=== PATIENT | female | born 1990 | race American Indian/Alaskan Native ===

== ENCOUNTER 2017-09-03 11:32 | Emergency (ER) | payer MEDICAID ==
[2017-09-03 12:57] LABS: Bilirubin,Urine NEG (Negative); Blood,Urine NEG (Negative); Color,Urine Yellow (Yellow); Mucus,Urine 1+ /HPF; Nitrite,Urine NEG (Negative); Protein,Urine <15 mg/dL mg/dL (Negative)
--- NOTE | 2017-09-03 13:30 | Emergency Department Report ---
ED Back Pain/Injury HPI - General Chief Complaint: Back Pain/Injury Stated Complaint: BACK PAIN Time Seen by Provider: 09/03/17 12:58 Source: patient Limitations: No Limitations - History of Present Illness Initial Comments: This is a 27 y.o. female presents with mid back pain for 2 weeks. She works for [employer] but don't recall lifting anything that would cause back pain. Omega twisting , bending, falling, or lifting something the wrong way. Reports back pain feels like fluid in mid back. Denies radiating beyond buttock. States she had a fever of 103.0 two days ago. She is having cough, SOB, light sensitivity for 2 days. She took ibuprofen for 2 days with minimal relief. MD Complaint: back pain -: days(s) (2 days for URI symptoms), week(s) (2 weeks for mid back pain) Similar Symptoms Previously: No Place: home Radiation: none Severity: moderate Severity scale (0 -10): 6 Quality: sharp, aching Consistency: intermittent Improves With: medication Worsens With: movement, walking, deep breaths/cough Context: unknown Associated Symptoms: cough, fever/chills. denies: confusion, weakness, chest pain, numbness, difficulty walking, difficulty urinating, diaphoresis, incontinence, constipation, headaches, abdominal pain, loss of appetite, malaise , nausea/vomiting, rash, seizure, shortness of breath, syncope Treatments Prior to Arrival: NSAIDS (advil) - Related Data Previous Rx's Medication Instructions Recorded Last Taken Type Acetaminophen/Codeine 1 tab PO Q6H PRN #15 tab 06/04/14 Unknown Rx [Acetaminophen-Codeine #3 TAB] Ibuprofen [Motrin 400 MG tab] 400 mg PO Q8H PRN #30 tablet 06/04/14 Unknown Rx Methocarbamol [Robaxin] 750 mg PO Q8H PRN #21 tablet 06/04/14 Unknown Rx Cyclobenzaprine HCl [Flexeril 5 MG 5 mg PO TID #30 tab 09/03/17 Unknown Rx TAB] Ibuprofen 800 mg PO Q8HR #28 tablet 09/03/17 Unknown Rx Allergies Allergy/AdvReac Type Severity Reaction Status Date / Time peanut butter Allergy Swelling Uncoded 06/04/14 09:04 ED Review of Systems ROS: Stated complaint: BACK PAIN Other details as noted in HPI Constitutional: see HPI, fever. denies: chills, diaphoresis, malaise, weakness Respiratory: cough. denies: orthopnea, shortness of breath, SOB with exertion, SOB at rest, stridor, wheezing Cardiovascular: denies: chest pain, palpitations Gastrointestinal: denies: abdominal pain, nausea, diarrhea Musculoskeletal: back pain (mid back pain) Neurological: denies: headache, weakness, paresthesias ED Back Pain Physical Exam - Exam General: Vital signs noted. No distress. Alert and acting appropriately. Back/Abdomen: Yes Perilumbar Tenderness (bilaterally on palpation), Yes Flank Tenderness (right and left), No Abdominal Tenderness, No Perithoracic Tenderness , No Sacroiliac Tenderness, No Straight Leg Raise Pain (negative bilaterally) Neuro: Yes Normal Sensation, Yes Normal DTR's, Yes Normal Gait, No Motor Weakness ED Course Vital Signs 09/03/17 12:20 Temperature 98.5 F Pulse Rate 84 Respiratory 20 Rate Blood Pressure 159/111 O2 Sat by Pulse 100 Oximetry ED Medical Decision Making - Radiology Data Radiology results: image reviewed FINDINGS: The vertebral body heights and disc spaces are well maintained. The alignment is normal. Pedicles are intact bilaterally at all levels. The paraspinal soft tissues are unremarkable. IMPRESSION: Normal thoracic spine. - Medical Decision Making This is a 27 y.o. female presents with bilateral paralumbar pain. Works at [employer], doesn't recall lifting anything the wrong way. Mild congestion and cough, normal temperature. Denies UTI symptoms. Pain is bilateral paralumbar on palpation, no swelling or erythema. Negative numbness and tingling. Normal thoracic spine. Negative rapid influenza. Appears to be strain of paralumbar bilaterally. Start cyclobenzaprine and ibuprofen. F/U with PCP if symptoms persist. Critical care attestation.: If time is entered above; I have spent that time in minutes in the direct care of this critically ill patient, excluding procedure time. ED Disposition Clinical Impression: Lumbar paraspinal muscle spasm Strain of lumbar paraspinal muscle Qualifiers: Encounter type: initial encounter Qualified Code(s): S39.012A - Strain of muscle, fascia and tendon of lower back, initial encounter Disposition: TO HOME OR SELFCARE Is pt being admited?: No Does the pt Need Aspirin: No Condition: Stable Instructions: Muscle Strain (ED), Lumbar Radiculopathy (ED), Low Back Strain ( ED) Additional Instructions: Return to regular activity as tolerated is encouraged to minimize disability. Follow up with Primary Care Provider if symptoms are not resolved in 2 weeks. Prescriptions: Cyclobenzaprine HCl [Flexeril 5 MG TAB] 5 mg PO TID #30 tab Ibuprofen 800 mg PO Q8HR #28 tablet Referrals: PRIMARY CARE, [Primary Care Provider] - 3-5 Days Time of Disposition: 16:27 Print Language: PERUVIAN
--- NOTE | 2017-09-03 15:05 | XRay Report ---
FINAL REPORT EXAM: XR SPINE THORACIC 3V HISTORY: mid back pain TECHNIQUE: AP, lateral and swimmer's views of the thoracic spine. PRIORS: None. FINDINGS: The vertebral body heights and disc spaces are well maintained. The alignment is normal. Pedicles are intact bilaterally at all levels. The paraspinal soft tissues are unremarkable. IMPRESSION: Normal thoracic spine.
[2017-09-03 15:52] VITALS: BP 158/90
== END 2017-09-03 16:51 | disposition home or self-care (01) ==
LOC: ED 11:32
DX: S39.012A Strain of muscle, fascia and tendon of lower back, initial encounter (principal); X58.XXXA Exposure to other specified factors, initial encounter; Y93.89 Activity, other specified; Y92.89 Other specified places as the place of occurrence of the external cause; Y99.8 Other external cause status; Z91.018 Allergy to other foods
CPT/HCPCS: 72072; 81001; 87400; 99284

== ENCOUNTER 2020-07-12 19:30 | Emergency (ER) | payer SELFPAY ==
[2020-07-12] MEDS ORDERED: SODIUM CHLORIDE 0.9% 1000 ML 1,000 ML IV ONE (19:43)
--- NOTE | 2020-07-12 19:43 | Emergency Department Report ---
History of Present Illness - General Stated Complaint: UNRESPONSIVE Time Seen by Provider: 07/12/20 19:40 Source: patient, family Mode of arrival: Stretcher Limitations: Altered Mental Status - History of Present Illness Initial Comments: Chief complaint: "I just know that she is going through a lot." HPI: This is a young female who had recent miscarriage. Her close friend picked her up from her boyfriend's home. Friend was concerned that patient appeared imprisoned by the boyfriend. Friend states that her clothes and cell phone were taken away from her. Patient appeared drowsy. While in friend's car, patient became unresponsive. Paramedics saw that patient was in distress in the ambulance bay. Patient was breathing 4 breaths/min according to paramedics on scene at this [facility] ambulance bay. Patient appeared to go completely apneic. Patient received 2 mg IV naloxone. She admittedly became alert. She was able to say her name. she admitted to drinking alcoholic beverage. MD Complaint: other (Suspected overdose) -: Sudden, This evening Intent: unknown Context: Accidental Overdose: uncertain what happened Associated Symptoms: shortness of breath, other (Decreased responsiveness) Treatments Prior to Arrival: narcan - Related Data Previous Rx's Medication Instructions Recorded Last Taken Type Amlodipine Besylate [Norvasc] 5 mg PO DAILY #30 tablet 07/19/18 Unknown Rx Triamcinolone 0.1% [Kenalog 0.1% 1 applic TP TID #30 g 07/19/18 Unknown Rx CREAM] predniSONE [Deltasone] 10 mg PO .TAPER #21 tab 07/19/18 Unknown Rx Allergies Allergy/AdvReac Type Severity Reaction Status Date / Time No Known Allergies Allergy Unverified 07/18/18 23:30 ED Review of Systems ROS: Stated complaint: UNRESPONSIVE Other details as noted in HPI Comment: Unobtainable due to pts medical conditions (Altered mental status) ED Past Medical Hx - Past Medical History Previous Medical History?: Yes Hx Hypertension: Yes (being monitored no meds as of now) Additional medical history: Eczema - Surgical History Additional Surgical History: hernia repair. 2 - Social History Smoking Status: Current Some Day Smoker - Medications Home Medications: Home Medications Medication Instructions Recorded Confirmed Last Taken Type Amlodipine Besylate [Norvasc] 5 mg PO DAILY #30 tablet 07/19/18 Unknown Rx Triamcinolone 0.1% [Kenalog 0.1% 1 applic TP TID #30 g 07/19/18 Unknown Rx CREAM] predniSONE [Deltasone] 10 mg PO .TAPER #21 tab 07/19/18 Unknown Rx ED Physical Exam - General General appearance: alert, other (Active vomiting) - Head Head exam: Present: atraumatic, normocephalic - Eye Eye exam: Present: normal appearance - ENT ENT exam: Present: mucous membranes moist - Neck Neck exam: Present: normal inspection, full ROM - Respiratory Respiratory exam: Present: normal lung sounds bilaterally. Absent: respiratory distress, wheezes, rales, rhonchi - Cardiovascular Cardiovascular Exam: Present: regular rate, normal rhythm, normal heart sounds. Absent: systolic murmur, diastolic murmur, rubs, gallop - GI/Abdominal GI/Abdominal exam: Present: soft, normal bowel sounds. Absent: distended, tenderness, guarding, rebound - Extremities Exam Extremities exam: Present: normal inspection - Back Exam Back exam: Present: normal inspection - Neurological Exam Neurological exam: Present: alert, oriented X3 - Psychiatric Psychiatric exam: Present: normal affect, normal mood - Skin Skin exam: Present: warm, dry, intact, normal color. Absent: rash ED Course Vital Signs 07/12/20 19:40 Temperature 97.5 F L Pulse Rate 103 H Respiratory 14 Rate Blood Pressure 147/93 [Left] O2 Sat by Pulse 99 Oximetry ED Medical Decision Making - Lab Data Result diagrams: 07/12/20 19:55 07/12/20 19:55 - EKG Data -: EKG Interpreted by Nv EKG shows normal: sinus rhythm, axis, intervals, QRS complexes, ST-T waves Rate: normal - EKG Data Interpretation: normal EKG 07/12/20 21:06 EKG interpreted by sc EKG obtained 2053 Rate 90 bpm EKG obtained EKG interpreted by sc Normal sinus rhythm normal rate normal axis normal intervals no ST elevation no ST-T signs of ischemia normal EKG - Radiology Data Radiology results: report reviewed CTA CHEST WITH CONTRAST INDICATION / CLINICAL INFORMATION: dyspnea tachycardia. TECHNIQUE: Axial CT images were obtained through the chest after injection of IV contrast. 3 plane MIP and/or 3D reconstructions were produced. All CT scans at this location are performed using CT dose reduction for ALARA by means of automated exposure control. COMPARISON: None available. FINDINGS: PULMONARY ARTERIES: No pulmonary emboli. THORACIC AORTA: No significant abnormality. HEART: No right heart strain. CORONARY ARTERIES: No significant calcification. MEDIASTINUM / DILLON: No significant abnormality. PLEURA: No pleural effusion. No pneumothorax. LUNGS: Mild linear atelectasis bilateral lung bases. ADDITIONAL FINDINGS: None. UPPER ABDOMEN: No acute findings. SKELETAL STRUCTURES: No significant osseous abnormality. IMPRESSION: 1. No CT evidence for pulmonary embolism. 2. No acute findings. - Medical Decision Making Is a 22-year-old female who presents with altered mental status. She was unresponsive. She was revived with IV naloxone. Work-up revealed elevated blood alcohol level. UDS positive for Cocaine and marijuana. CT angiogram negative for pulmonary embolism. CT angiogram of the chest obtained for severe shortness of breath and history of syncope. Clinical impression: Unintentional drug overdose due to polysubstance abuse After clarification with patient and friend, patient does have a safe place to stay. She is not in an abusive situation. She feels safe with her boyfriend. She is discharged home. Critical Care Time: Yes Critical care time in (mins) excluding proc time.: 40 Critical care attestation.: If time is entered above; I have spent that time in minutes in the direct care of this critically ill patient, excluding procedure time. 40 minutes of critical care time excluding procedures were used in the care of the patient. I came immediately to the bedside upon patient's arrival. Prior to patient's arrival to the treatment room, I and respiratory therapist prepared Airway equipment. I obtained history from EMS at the bedside. I discussed tr eatment plan with the nursing team members. I reviewed electronic record. I obtained history from friend at the bedside. Patient required multiple interventions and reassessments. ED Disposition Clinical Impression: Intentional drug overdose, Polysubstance abuse Disposition: DC-01 TO HOME OR SELFCARE Is pt being admited?: No Does the pt Need Aspirin: No Condition: Stable Instructions: Accidental Drug Poisoning, Adult Referrals: FER FERNANDES MD [Staff Physician] - 3-5 Days
[2020-07-12] MEDS ORDERED: ONDANSETRON 4 MG/2 ML INJ IV ONE (19:44)
[2020-07-12] MEDS ORDERED: LORazepam 2 MG/ML VIAL IV ONE (20:02)
[2020-07-12 20:27] LABS: Basophils # (Auto) 0.1 K/mm3 (0.0-0.1); Basophils % (Auto) 0.6 % (0.0-1.8); Eosinophils # (Auto) 0.1 K/mm3 (0.0-0.4); Hemoglobin 14.7 gm/dl (10.1-14.3); Lymphocytes # (Auto) 3.2 K/mm3 (1.2-5.4); Lymphocytes % (Auto) 34.7 % (13.4-35.0); Mean Corpuscular HGB Conc 34 % (30-34); Mean Corpuscular Volume 101 fl (79-97); Monocytes # (Auto) 0.8 K/mm3 (0.0-0.8); Monocytes % (Auto) 8.6 % (0.0-7.3); Platelet Count 289 K/mm3 (140-440); Red Blood Count 4.25 M/mm3 (3.65-5.03); Red Cell Distribution Width 12.7 % (13.2-15.2)
[2020-07-12 20:30] LABS: Alanine Aminotransferase 22 units/L (7-56); Albumin 4.3 g/dL (3.9-5); BUN/Creatinine Ratio 10; Blood Urea Nitrogen 10 mg/dL (7-17); Calcium 9.2 mg/dL (8.4-10.2); Hemolysis Index 35
[2020-07-12 21:00] LABS: Bilirubin,Urine NEG (Negative); Blood,Urine NEG (Negative); Color,Urine Colorless (Yellow); HCG Qualitative,Urine Negative (Negative); Mucus,Urine FEW /HPF; Protein,Urine <15 mg/dL mg/dL (Negative); RBC,Urine < 1.0 /HPF (0.0-6.0); Urobilinogen,Urine < 2.0 mg/dL (<2.0)
[2020-07-12 21:05] LABS: Amphetamine Screen,Urine PRESUMPTIVE NEGATIVE; Benzodiazepines Screen,Urine PRESUMPTIVE NEGATIVE; Cannabinoid Screen,Urine PRESUMPTIVE POSITIVE; Cocaine Screen,Urine PRESUMPTIVE POSITIVE; Methadone Screen,Urine PRESUMPTIVE NEGATIVE; Opiate Screen,Urine PRESUMPTIVE NEGATIVE
--- NOTE | 2020-07-12 22:30 | Cat Scan Report ---
CTA CHEST WITH CONTRAST INDICATION / CLINICAL INFORMATION: dyspnea tachycardia. TECHNIQUE: Axial CT images were obtained through the chest after injection of IV contrast. 3 plane MIP and/or 3D reconstructions were produced. All CT scans at this location are performed using CT dose reduction f or ALARA by means of automated exposure control. COMPARISON: None available. FINDINGS: PULMONARY ARTERIES: No pulmonary emboli. THORACIC AORTA: No significant abnormality. HEART: No right heart strain. CORONARY ARTERIES: No significant calcification. MEDIASTINUM / DILLON: No significant abnormality. PLEURA: No pleural effusion. No pneumothorax. LUNGS: Mild linear atelectasis bilateral lung bases. ADDITIONAL FINDINGS: None. UPPER ABDOMEN: No acute findings. SKELETAL STRUCTURES: No significant osseous abnormality. IMPRESSION: 1. No CT evidence for pulmonary embolism. 2. No acute findings. Signer Name: Ahmet Mazariegos MD Signed: 07/12/2020 10:26 PM Workstation Name: [id number]
[2020-07-13 00:17] VITALS: BP 96/50
== END 2020-07-13 00:35 | disposition home or self-care (01) ==
LOC: ED 19:30
DX: T50.902A Poisoning by unspecified drugs, medicaments and biological substances, intentional self-harm, initial encounter (principal); F19.10 Other psychoactive substance abuse, uncomplicated; I10 Essential (primary) hypertension; F17.200 Nicotine dependence, unspecified, uncomplicated; Z98.890 Other specified postprocedural states; Z79.899 Other long term (current) drug therapy; Y92.89 Other specified places as the place of occurrence of the external cause
CPT/HCPCS: 36415; 71275; 80053; 80307; 81001; 81025; 85025; 93005; 96361; 96374; 99284; J2060; J2405; J7030; Q9967; 80320; G0480

== ENCOUNTER 2021-10-02 03:09 | Emergency (ER) | payer SELFPAY ==
[2021-10-02 04:07] VITALS: BP 144/103
[2021-10-02] MEDS ORDERED: ONDANSETRON 4 MG/2 ML INJ IV ONE ×3 (04:19→05:25)
[2021-10-02 04:53] LABS: Hematocrit 41.7 % (30.3-42.9); Hemoglobin 14.1 gm/dl (10.1-14.3); Mean Corpuscular HGB Conc 34 % (30-34); Mean Corpuscular Volume 99 fl (79-97); Platelet Count 203 K/mm3 (140-440); Red Blood Count 4.23 M/mm3 (3.65-5.03); Red Cell Distribution Width 12.9 % (13.2-15.2)
[2021-10-02 05:02] LABS: Amphetamine Screen,Urine Negative; Benzodiazepines Screen,Urine Negative; Cocaine Screen,Urine Negative; Methadone Screen,Urine Negative; Opiate Screen,Urine Negative
[2021-10-02 05:04] LABS: Bilirubin,Urine NEG (Negative); Blood,Urine NEG (Negative); Color,Urine Yellow (Yellow); Hyaline Casts,Urine 1 /LPF; Mucus,Urine FEW /HPF; Protein,Urine <15 mg/dL mg/dL (Negative); WBC,Urine < 1.0 /HPF (0.0-6.0)
[2021-10-02 05:13] LABS: Alanine Aminotransferase 15 units/L (7-56); Albumin 4.2 g/dL (3.9-5); BUN/Creatinine Ratio 14; Blood Urea Nitrogen 13 mg/dL (7-17); Calcium 8.9 mg/dL (8.4-10.2); Hemolysis Index 5
[2021-10-02 05:18] LABS: Cannabinoid Screen,Urine Positive
[2021-10-02] MEDS ORDERED: KETOROLAC 30 MG/1 ML INJ IV ONE ×2 (05:24→05:25)
--- NOTE | 2021-10-02 05:30 | Emergency Department Report ---
ED Abdominal Pain HPI - General Chief Complaint: Abdominal Pain Stated Complaint: PAIN IN SIDES/NAUSEOUS/DEHYDRATED Time Seen by Provider: 10/02/21 04:12 Source: patient Mode of arrival: Ambulatory Limitations: No Limitations - History of Present Illness Initial Comments: Patient is a 31-year-old -Russian female with a history of hypertension who presents to the ED with complaint of acute onset persistent bilateral flank pain that radiates to the lower abdomen with nausea and vomiting for the last 2 days. Patient states that the nausea and vomiting is worsened in the last 12 hours. Patient denies dizziness, syncope, vaginal bleeding, vaginal discharge, dysuria, urinary frequency and urgency, chest pain or shortness of breath, fever, chills, diarrhea or dyspareunia and traumatic injury or heavy lifting. MD Complaint: abdominal pain (Low abdominal pain), flank pain (Bilateral flank pain diffuse into the lower abdomen), other (Nausea and vomiting) -: Sudden, days(s) (2) Location: suprapubic, bilateral flank Radiation: suprapubic, bilateral flank Migration to: no migration Severity: severe Severity scale (0 -10): 7 Quality: cramping, sharp Consistency: constant Improves With: nothing Worsens With: vomiting, movement Associated Symptoms: denies other symptoms, nausea, vomiting, anorexia. denies: diarrhea, fever, chills, dysuria, hematemesis, hematochezia, melena, hematuria - Related Data LMP Date: 09/21/21 Previous Rx's Medication Instructions Recorded Last Taken Type Amlodipine Besylate [Norvasc] 5 mg PO DAILY #30 tablet 07/19/18 Unknown Rx Triamcinolone 0.1% [Kenalog 0.1% 1 applic TP TID #30 g 07/19/18 Unknown Rx CREAM] predniSONE 10 mg PO .TAPER #21 tab 07/19/18 Unknown Rx Ketorolac [Toradol] 10 mg PO Q8H PRN #20 10/02/21 Unknown Rx Ondansetron [Zofran Odt] 4 mg PO Q6HR PRN #20 tab.rapdis 10/02/21 Unknown Rx traMADoL [Ultram] 50 mg PO Q8HR PRN #10 tablet 10/02/21 Unknown Rx Allergies Allergy/AdvReac Type Severity Reaction Status Date / Time No Known Allergies Allergy Unverified 11/21/18 23:30 ED Review of Systems ROS: Stated complaint: PAIN IN SIDES/NAUSEOUS/DEHYDRATED Other details as noted in HPI Constitutional: denies: chills, fever Eyes: denies: eye pain, eye discharge, vision change ENT: denies: ear pain, throat pain Respiratory: denies: cough, shortness of breath, wheezing Cardiovascular: denies: chest pain, palpitations Endocrine: no symptoms reported Gastrointestinal: abdominal pain, nausea, vomiting, other. denies: diarrhea Genitourinary: denies: urgency, dysuria, frequency (Bilateral flank pain), hematuria, discharge Musculoskeletal: denies: back pain, joint swelling, arthralgia Skin: denies: rash, lesions Neurological: denies: headache, weakness, paresthesias Psychiatric: denies: anxiety, depression Hematological/Lymphatic: denies: easy bleeding, easy bruising ED Past Medical Hx - Past Medical History Previous Medical History?: Yes Hx Hypertension: Yes (being monitored no meds as of now) Additional medical history: Eczema - Surgical History Past Surgical History?: Yes Additional Surgical History: hernia repair. 2 - Social History Smoking Status: Current Some Day Smoker - Medications Home Medications: Home Medications Medication Instructions Recorded Confirmed Last Taken Type Amlodipine Besylate [Norvasc] 5 mg PO DAILY #30 tablet 07/19/18 Unknown Rx Triamcinolone 0.1% [Kenalog 0.1% 1 applic TP TID #30 g 07/19/18 Unknown Rx CREAM] predniSONE 10 mg PO .TAPER #21 tab 07/19/18 Unknown Rx Ketorolac [Toradol] 10 mg PO Q8H PRN #20 10/02/21 Unknown Rx Ondansetron [Zofran Odt] 4 mg PO Q6HR PRN #20 tab.rapdis 10/02/21 Unknown Rx traMADoL [Ultram] 50 mg PO Q8HR PRN #10 tablet 10/02/21 Unknown Rx ED Physical Exam - General Limitations: No Limitations General appearance: alert, in no apparent distress - Head Head exam: Present: atraumatic, normocephalic, normal inspection - Eye Eye exam: Present: normal appearance, PERRL, EOMI Pupils: Present: normal accommodation - ENT ENT exam: Present: normal exam, normal orophraynx, mucous membranes moist, TM's normal bilaterally, normal external ear exam - Neck Neck exam: Present: normal inspection, full ROM - Respiratory Respiratory exam: Present: normal lung sounds bilaterally. Absent: respiratory distress, wheezes, rales, rhonchi, stridor, chest wall tenderness, accessory muscle use, decreased breath sounds, other - Cardiovascular Cardiovascular Exam: Present: regular rate, normal rhythm, normal heart sounds. Absent: systolic murmur, diastolic murmur, rubs, gallop - GI/Abdominal GI/Abdominal exam: Present: soft, tenderness (Palpable diffuse lower abdominal tenderness), normal bowel sounds. Absent: guarding, rebound, hyperactive bowel sounds, hypoactive bowel sounds, organomegaly - Extremities Exam Extremities exam: Present: normal inspection, full ROM, normal capillary refill. Absent: tenderness, pedal edema, joint swelling, calf tenderness - Back Exam Back exam: Present: normal inspection, full ROM, tenderness (Palpable lumbosacral paraspinal musculoskeletal tenderness), muscle spasm, paraspinal tenderness. Absent: CVA tenderness (R), CVA tenderness (L), vertebral tenderness - Neurological Exam Neurological exam: Present: alert, oriented X3, CN II-XII intact, normal gait, reflexes normal - Psychiatric Psychiatric exam: Present: normal affect, normal mood - Skin Skin exam: Present: warm, dry, intact, normal color. Absent: rash ED Course Vital Signs 10/02/21 04:01 Temperature 98.5 F Pulse Rate 79 Respiratory 18 Rate Blood Pressure 144/103 [Right] O2 Sat by Pulse 99 Oximetry ED Medical Decision Making - Lab Data Result diagrams: 10/02/21 04:42 10/02/21 04:42 - Radiology Data Radiology results: report reviewed, image reviewed The abdomen pelvis CT scan with contrast showed no acute abnormalities in the abdomen or pelvis. No acute appendicitis and uterus and ovaries demonstrate no significant abnormalities. - Medical Decision Making This is a 31-year-old -Russian female with a history of hypertension who presents to the ED with complaint of acute onset persistent bilateral flank pain that radiates to the lower abdomen with nausea and vomiting for the last 2 days. Patient states that the nausea and vomiting is worsened in the last 12 hours. In the ED, patient is alert and oriented x3 and is not in any distress. Patient was treated for pain in the ED and lab test results were reviewed and are all nonactionable. Patient was treated for nausea and vomiting as well. Abdomen pelvis CT scan with contrast showed no acute abnormalities in the abdomen and pelvis. On reevaluation, patient's pain is well controlled medication. Patient will discharge home on pain medications and antiemetics and advised to follow-up with her primary care physician in 5 to 7 days for reevaluation. Patient was advised return to the ED immediately if symptoms get worse. - Differential Diagnosis UTI; ; kidney stones; Critical care attestation.: If time is entered above; I have spent that time in minutes in the direct care of this critically ill patient, excluding procedure time. ED Disposition Clinical Impression: Nausea and vomiting in adult patient Abdominal pain Qualifiers: Abdominal location: lower abdomen, unspecified Qualified Code(s): R10.30 - Lower abdominal pain, unspecified Disposition: HOME / SELF CARE / HOMELESS Is pt being admited?: No Does the pt Need Aspirin: No Condition: Stable Instructions: Nausea and Vomiting, Adult, [id number], Abdominal Pain, Adult, [id number], Abdominal Pain (ED) Additional Instructions: All lab test results were reviewed and are all nonactionable. Abdomen pelvis CT scan with contrast showed no acute abnormalities. Therefore take medications with food, drink plenty fluids and follow-up with your primary care physician in 5 to 7 days for reevaluation. Return to the ED immediately if symptoms get worse. Prescriptions: Ketorolac [Toradol] 10 mg PO Q8H PRN #20 PRN Reason: Pain traMADoL [Ultram] 50 mg PO Q8HR PRN #10 tablet PRN Reason: Pain Ondansetron [Zofran Odt] 4 mg PO Q6HR PRN #20 tab.rapdis PRN Reason: Nausea Referrals: [facility] [Provider Group] - 3-5 Days Time of Disposition: 05:30 Print Language: FAROESE
[2021-10-02 05:38] LABS: Total Cells Counted 100
[2021-10-02 05:39] LABS: Basophils % (Manual) 0 % (0.0-1.8); Platelet Estimate Consistent w Auto; RBC Morphology Normal
--- NOTE | 2021-10-06 08:24 | Cat Scan Report ---
CT ABDOMEN AND PELVIS WITH CONTRAST INDICATION / CLINICAL INFORMATION: diffuse lower abdominal pain. TECHNIQUE: Axial CT images were obtained through the abdomen and pelvis after IV contrast. All CT sc ans at this location are performed using CT dose reduction for ALARA by means of automated exposure c ontrol. COMPARISON: None available. FINDINGS: LOWER CHEST: No significant abnormality of the imaged chest. LIVER: No significant abnormality. GALLBLADDER: No significant abnormality. BILE DUCTS: No significant abnormality. SPLEEN: No significant abnormality. PANCREAS: No significant abnormality. ADRENALS: No significant abnormality. RIGHT KIDNEY / URETER: No significant abnormality. LEFT KIDNEY / URETER: No significant abnormality. STOMACH / DUODENUM / SMALL BOWEL: No significant abnormality. COLON: No significant abnormality. APPENDIX: No significant abnormality. PERITONEUM: No free air or free fluid are present within the abdomen or pelvis. LYMPH NODES: No significant adenopathy. AORTA / ARTERIES: No significant abnormality. IVC / VEINS: No significant abnormality. URINARY BLADDER: No significant abnormality. REPRODUCTIVE ORGANS: Uterus and ovaries demonstrate no significant abnormalities. ADDITIONAL ABDOMINAL/PELVIC FINDINGS: None. SKELETAL SYSTEM: No significant abnormality. IMPRESSION: 1. No acute findings within abdomen or pelvis. Signer Name: John Cazares II, MD Signed: 10/02/2021 6:11 AM Workstation Name: [id number]
== END 2021-10-02 06:40 | disposition home or self-care (01) ==
LOC: ED 03:09
DX: R10.30 Lower abdominal pain, unspecified (principal); R11.2 Nausea with vomiting, unspecified; I10 Essential (primary) hypertension; Z79.899 Other long term (current) drug therapy; Z98.890 Other specified postprocedural states
CPT/HCPCS: 36415; 74177; 80053; 80307; 81001; 83690; 84702; 85007; 85025; 85045; 96374; 96375; 96376; 99284; J1885; J2405; Q9967; 80320; G0480

== ENCOUNTER 2022-04-12 21:30 | Emergency (ER) | payer SELFPAY ==
[2022-04-12 22:05] VITALS: BP 121/72
== END 2022-04-13 09:04 | disposition left against medical advice (07) ==
LOC: ED 21:30
DX: M25.511 Pain in right shoulder (principal); Z53.21 Procedure and treatment not carried out due to patient leaving prior to being seen by health care provider; V89.2XXA Person injured in unspecified motor-vehicle accident, traffic, initial encounter; Y93.89 Activity, other specified; Y92.89 Other specified places as the place of occurrence of the external cause; Y99.8 Other external cause status